=== PATIENT | female | born 1945 | race Caucasian/White ===

== ENCOUNTER 2016-09-19 13:52 | Day surgery (SDC) | payer MEDICARE ==
[~2016-09-19 13:52] MED LIST: Lactated Ringers 1,000 ML IV SCH; Propofol 200 MG/20 ML SDV ONE; fentaNYL 100 MCG/2 ML SDV ONE
--- NOTE | 2016-09-20 01:03 | OR ---
PREOPERATIVE DIAGNOSIS: Positive family history for colon cancer. POSTOPERATIVE DIAGNOSIS: Significant pancolonic diverticulosis. PROCEDURE PROPOSED AND PROCEDURE DONE: Total flexible colonoscopy. INDICATION: This is a 71-year-old female, who comes in for colonic surveillance. Her last examination was 7 years ago. She has a fairly strong family history of colon cancer. TECHNIQUE: The patient was brought to the endoscopy suite, placed in left lateral decubitus position. She was sedated with propofol per [employer]. The flexible video colonoscope was then passed transanally and under visualization advanced to the cecum. Examination revealed a normal ascending, transverse, descending, sigmoid, and rectal colon. She had rather extensive diverticulosis throughout the entire colon, most marked in the sigmoid region. No polyps were identified and there were no signs of any other abnormalities, and the scope was then withdrawn. She tolerated the procedure well. IMPRESSION: 1. Pancolonic diverticulosis. 2. Family history of colon cancer. PLAN: She should continue colonic surveillance every 5 years hereafter. SCM: 09/19/2016 12:01:12 MODL: 09/20/2016 00:53:55 /[id number]
== END 2016-09-19 14:12 | disposition home or self-care (01) ==
LOC: VM.SDS 13:52
PROVIDERS: ATTEND Surgery
DX: Z12.11 Encounter for screening for malignant neoplasm of colon (principal); K57.30 Diverticulosis of large intestine without perforation or abscess without bleeding; I10 Essential (primary) hypertension; E78.00 Pure hypercholesterolemia, unspecified; Z90.710 Acquired absence of both cervix and uterus; Z88.8 Allergy status to other drugs, medicaments and biological substances; E66.9 Obesity, unspecified
CPT/HCPCS: G0105; J2704; J3010; J7120

== ENCOUNTER 2021-11-30 07:07 | Day surgery (SDC) | payer MEDICARE ==
[~2021-11-30 07:07] MED LIST changes: -Propofol 200 MG/20 ML SDV ONE; -fentaNYL 100 MCG/2 ML SDV ONE
[2021-11-30] MEDS ORDERED: Midazolam 1 MG/ML 2 ML SDV ONE (09:00)
[2021-11-30] MEDS ORDERED: fentaNYL 100 MCG/2 ML SDV ONE (09:00)
[2021-11-30] MEDS ORDERED: Propofol 200 MG/20 ML SDV ONE (09:00)
== END 2021-11-30 16:15 | disposition home or self-care (01) ==
LOC: VM.SDS 07:07
PROVIDERS: ATTEND Family Medicine
DX: Z12.11 Encounter for screening for malignant neoplasm of colon (principal); D12.3 Benign neoplasm of transverse colon; D12.8 Benign neoplasm of rectum; K57.30 Diverticulosis of large intestine without perforation or abscess without bleeding; K64.9 Unspecified hemorrhoids; K63.89 Other specified diseases of intestine; E78.00 Pure hypercholesterolemia, unspecified; E66.9 Obesity, unspecified; K21.9 Gastro-esophageal reflux disease without esophagitis; I12.9 Hypertensive chronic kidney disease with stage 1 through stage 4 chronic kidney disease, or unspecified chronic kidney disease; M85.80 Other specified disorders of bone density and structure, unspecified site; N18.31 Chronic kidney disease, stage 3a; R73.01 Impaired fasting glucose; Z79.899 Other long term (current) drug therapy; Z88.8 Allergy status to other drugs, medicaments and biological substances; Z80.0 Family history of malignant neoplasm of digestive organs; Z98.890 Other specified postprocedural states; Z86.16 Personal history of COVID-19; Z68.31 Body mass index [BMI] 31.0-31.9, adult
CPT/HCPCS: 00812; 45380; 45385; J2250; J2704; J3010; J7120; 88305